=== PATIENT | male | born 1945 | race Caucasian/White ===

== ENCOUNTER 2022-09-21 08:03 | Outpatient (CLI) | payer MEDICARE, OTHER, SELFPAY | END 2022-09-21 08:04 | disposition home or self-care (01) | PROVIDERS: PCP Family Medicine; Visit Provider Family Medicine | DX: Z00.00 Encounter for general adult medical examination without abnormal findings (principal); E66.3 Overweight; Z13.1 Encounter for screening for diabetes mellitus; Z12.5 Encounter for screening for malignant neoplasm of prostate; Z13.6 Encounter for screening for cardiovascular disorders | CPT/HCPCS: 80061; 82947; 84153 ==